=== PATIENT | male | born 1970 | race Caucasian/White ===

== ENCOUNTER 2020-12-28 12:46 | Inpatient (IN) ==
[2020-12-28] MEDS ORDERED: NS 0.9% 1000 ml BAG 1,000 ML IV ONE (13:02)
[2020-12-28 13:24] LABS: ABS Basophils 0.1 10^3/ul (0-0.2); ABS Eosinophils 0.1 10^3/ul (0-0.6); ABS Lymphocytes 1.3 10^3/ul (1.0-4.8); ABS Monocytes 0.4 10^3/ul (0-0.8); Hematocrit 46 % (42-52); Hemoglobin 15.7 g/dL (14.0-18.0); Mean Corpuscular HGB Conc 34 g/dL (31-36); Mean Corpuscular Hemoglobin 32 pg (27-31); Mean Corpuscular Volume 94 fL (80-94); Mean Platelet Volume 7.8 fL (7.4-10.4); Platelet Count 273 10^3/uL (150-450); Red Blood Count 4.88 10^6 /uL (4.18-5.48); Red Cell Distribution Width 14 % (10-15); White Blood Count 5.9 10^3/uL (3.5-10.8)
[2020-12-28 13:42] LABS: INR 1.16 (0.82-1.09)
[2020-12-28 13:43] LABS: Albumin 4.3 g/dL (3.2-5.2); Albumin/Globulin Ratio 1.4 (1-3); Calcium 8.9 mg/dL (8.6-10.3); EGFR African American 92.9 (>60); EGFR Non-African American 76.8 (>60); Globulin 3.1 g/dL (2-4); Potassium 3.8 mmol/L (3.5-5.0); Total Bilirubin 0.7 mg/dL (0.2-1.0); Total Protein 7.4 g/dL (6.4-8.9)
[2020-12-28] MEDS ORDERED: Iohexol 350 (CONTRAST) 500 ML MDV IV ONE ×2 (20:52→21:17)
[2020-12-28] MEDS ORDERED: NS 0.9% 1000 ml BAG 1,000 ML IV SCH (23:30)
[2020-12-29 03:36] LABS: TSH Ultra Thyroid Stim Horm 5.36 mcIU/mL (0.34-5.60)
[2020-12-29] MEDS ORDERED: Senna TAB 8.6 mg TAB PO PRN (04:22)
[2020-12-29] MEDS ORDERED: Iohexol 350 (CONTRAST) 500 ML MDV IV ONE (08:41)
[2020-12-29] MEDS ORDERED: Gadoteridol (CONTRAST) 279.3 MG/ML 10 ML IV ONE (15:12)
[2020-12-30] MEDS ORDERED: Lorazepam PYXIS KEY PRN (12:49)
[2020-12-30] MEDS ORDERED: LORazepam 2 mg VIAL 1 ml IV PUSH ONE (12:50)
[2020-12-30] MEDS ORDERED: Gadoteridol (CONTRAST) 279.3 MG/ML 10 ML IV ONE (15:50)
[2021-01-03] MEDS ORDERED: Piperacillin/Tazobac ADVAN 3.375 GM in NS 0.9% 100 ml BAG 100 ML IV ONE (03:32)
[2021-01-03] MEDS ORDERED: Zosyn per Pharmacy NOTE FOLLOW UP SCH (04:00)
[2021-01-03] MEDS: ZOSYN 3.375 GM Q8H per EXTENDED INFUSION IV SCH ×2 (08:10→16:41)
[2021-01-03 17:22] LABS: Urine Appearance Cloudy; Urine Bilirubin Negative (Negative); Urine Blood Negative (Negative); Urine Color Amber; Urine Glucose Negative (Negative); Urine Ketones Trace (Negative); Urine Nitrite Negative (Negative); Urine Protein 2+(100 mg/dL) (Negative); Urine Specific Gravity 1.026 (1.002-1.030); Urine Urobilinogen Negative (Negative)
[2021-01-03 17:57] LABS: Urine Bacteria Absent (Absent); Urine Red Blood Cell Absent (Absent); Urine White Blood Cell Absent (Absent)
[2021-01-04] MEDS: ZOSYN 3.375 GM Q8H per EXTENDED INFUSION IV SCH ×3 (00:25→18:54)
[2021-01-04 04:24] LABS: ABS Lymphocytes 0.3 10^3/ul (1.0-4.8); ABS Monocytes 0.4 10^3/ul (0-0.8); ABS Neutrophils 8.5 10^3/ul (1.5-7.7); Eosinophil % 0.1 %; Hematocrit 45 % (42-52); Hemoglobin 15.6 g/dL (14.0-18.0); Lymphocyte % 3.1 %; Mean Corpuscular HGB Conc 35 g/dL (31-36); Mean Corpuscular Hemoglobin 33 pg (27-31); Mean Corpuscular Volume 96 fL (80-94); Mean Platelet Volume 7.6 fL (7.4-10.4); Platelet Count 292 10^3/uL (150-450); Red Blood Count 4.68 10^6 /uL (4.18-5.48); Red Cell Distribution Width 15 % (10-15); White Blood Count 9.2 10^3/uL (3.5-10.8)
[2021-01-04 04:40] LABS: Calcium 9.3 mg/dL (8.6-10.3); EGFR Non-African American 84.3 (>60); Magnesium 2.3 mg/dL (1.9-2.7); Potassium 4.9 mmol/L (3.5-5.0)
[2021-01-04] MEDS ORDERED: Levothyroxine 100 MCG/5 ML VIAL IV SCH (06:00)
[2021-01-04] MEDS ORDERED: Perflutren Lipid Microsphere 3 ML VIAL ONE (09:24)
[2021-01-04] MEDS ORDERED: Rocuronium 50 mg VIAL 10 mg/ml 5 ml VIAL (50 mg) ONE (13:43)
[2021-01-04] MEDS ORDERED: Succinylcholine 200 mg VIAL 20 mg/ml 10 ml VIAL (200 mg) ONE (13:43)
[2021-01-04] MEDS ORDERED: Etomidate 40 mg/20 ml (2 MG/ML) 20 ml VIAL (40 mg) ONE (15:03)
[2021-01-04] MEDS ORDERED: Midazolam 10 mg/10 ml VIAL 1 mg/ml 10 ml VIAL (10 mg) ONE (15:03)
[2021-01-04] MEDS ORDERED: Propofol 10 mg/ml 100 ML BTL 100 ML ONE ×2 (15:12→18:16)
[2021-01-04 16:50] LABS: Urine Appearance Cloudy; Urine Bilirubin Negative (Negative); Urine Blood 3+ (Negative); Urine Color Amber; Urine Glucose Negative (Negative); Urine Ketones 1+ (Negative); Urine Nitrite Negative (Negative); Urine Protein 2+(100 mg/dL) (Negative); Urine Specific Gravity 1.024 (1.002-1.030); Urine Urobilinogen Negative (Negative)
[2021-01-04 17:42] LABS: Urine Bacteria Absent (Absent); Urine Red Blood Cell 3+(>10/hpf) (Absent); Urine Squamous Epithelial Cell Present (Absent); Urine White Blood Cell Trace(0-5/hpf) (Absent)
[2021-01-04] MEDS: Chlorhexidine MOUTHWASH 0.12% 15 ML UDC SWISH SPIT SCH ×2 (21:53→22:23)
[2021-01-05] MEDS: ZOSYN 3.375 GM Q8H per EXTENDED INFUSION IV SCH ×3 (00:20→16:30)
[2021-01-05] MEDS: Propofol 10 mg/ml 100 ML BTL 100 ML IV SCH ×5 (00:57→20:48)
[2021-01-05] MEDS: Chlorhexidine MOUTHWASH 0.12% 15 ML UDC SWISH SPIT SCH ×6 (02:36→20:29)
[2021-01-05 04:05] LABS: ABS Lymphocytes 0.8 10^3/ul (1.0-4.8); ABS Monocytes 0.6 10^3/ul (0-0.8); ABS Neutrophils 8.3 10^3/ul (1.5-7.7); Eosinophil % 0.5 %; Hematocrit 40 % (42-52); Hemoglobin 13.8 g/dL (14.0-18.0); Mean Corpuscular HGB Conc 35 g/dL (31-36); Mean Corpuscular Hemoglobin 33 pg (27-31); Mean Corpuscular Volume 95 fL (80-94); Platelet Count 295 10^3/uL (150-450); Red Blood Count 4.17 10^6 /uL (4.18-5.48); Red Cell Distribution Width 15 % (10-15); White Blood Count 9.8 10^3/uL (3.5-10.8)
[2021-01-05 04:25] LABS: Calcium 9.1 mg/dL (8.6-10.3); EGFR African American 109.9 (>60); EGFR Non-African American 90.9 (>60); Magnesium 2.1 mg/dL (1.9-2.7); Potassium 3.9 mmol/L (3.5-5.0)
[2021-01-05] MEDS ORDERED: LORazepam 2 mg VIAL 1 ml IV PUSH PRN (04:45)
[2021-01-05] MEDS ORDERED: Lorazepam PYXIS KEY PRN (04:45)
[2021-01-05] MEDS: Levothyroxine 100 MCG/5 ML VIAL IV SCH (05:56)
[2021-01-05] MEDS: Morphine 2 MG/ML SYRINGE IV PRN ×3 (06:07→18:25)
[2021-01-05] MEDS ORDERED: Potassium Phosphate IV 15 MMOLE in NS 0.9% 250 ml 250 ML IVPB ONE (06:41)
[2021-01-05] MEDS ORDERED: Buffered Lidocaine 1% SYRIN 1 ml INTRADERM ONE (08:59)
[2021-01-05] MEDS: Erythromycin OPTH OINT APPLIC OINT LEFT EYE SCH ×2 (14:52→20:30)
[2021-01-05] MEDS: Saline FLUSH-CENTRAL 10 ML SYRINGE CENT\\PICC SCH ×2 (14:52→20:22)
[2021-01-06] MEDS: ZOSYN 3.375 GM Q8H per EXTENDED INFUSION IV SCH ×3 (00:05→16:10)
[2021-01-06] MEDS: Propofol 10 mg/ml 100 ML BTL 100 ML IV SCH ×4 (01:45→20:28)
[2021-01-06] MEDS: Chlorhexidine MOUTHWASH 0.12% 15 ML UDC SWISH SPIT SCH ×6 (02:58→20:59)
[2021-01-06] MEDS: Levothyroxine 100 MCG/5 ML VIAL IV SCH (05:12)
[2021-01-06 05:34] LABS: ABS Eosinophils 0.2 10^3/ul (0-0.6); ABS Lymphocytes 0.8 10^3/ul (1.0-4.8); ABS Monocytes 0.6 10^3/ul (0-0.8); Eosinophil % 2.1 %; Hematocrit 40 % (42-52); Hemoglobin 13.5 g/dL (14.0-18.0); Mean Corpuscular HGB Conc 34 g/dL (31-36); Mean Corpuscular Hemoglobin 32 pg (27-31); Mean Corpuscular Volume 96 fL (80-94); Mean Platelet Volume 7.6 fL (7.4-10.4); Platelet Count 275 10^3/uL (150-450); Red Blood Count 4.21 10^6 /uL (4.18-5.48); Red Cell Distribution Width 14 % (10-15); White Blood Count 7.5 10^3/uL (3.5-10.8)
[2021-01-06 05:49] LABS: Calcium 8.9 mg/dL (8.6-10.3); EGFR African American 107.1 (>60); EGFR Non-African American 88.6 (>60); Magnesium 2.1 mg/dL (1.9-2.7); Phosphorus 3.4 mg/dL (2.5-5.0)
[2021-01-06] MEDS: Nystatin TOP POWDER 15 GM BTL TOPICAL SCH ×2 (08:56→20:59)
[2021-01-06] MEDS: Erythromycin OPTH OINT APPLIC OINT LEFT EYE SCH ×3 (08:56→20:59)
[2021-01-06] MEDS: Saline FLUSH-CENTRAL 10 ML SYRINGE CENT\\PICC SCH ×2 (08:57→20:59)
[2021-01-06] MEDS ORDERED: Lidocaine 4 MG/ML IV PREMIX 2,000 MG/500 ML BAG IV ONE (09:55)
[2021-01-06] MEDS ORDERED: Sodium Bicarbonate 8.4% VIAL 1 MEQ/ML 50 ml VIAL (50 meq) ONE (09:55)
[2021-01-06] MEDS: Pantoprazole VIAL 40 MG VIAL IV SCH (13:15)
[2021-01-06] MEDS ORDERED: Heparin 5000 UNITS/ML 1 mL VIAL SUBCUT SCH (14:00)
[2021-01-07] MEDS: ZOSYN 3.375 GM Q8H per EXTENDED INFUSION IV SCH ×4 (00:20→23:24)
[2021-01-07] MEDS: Propofol 10 mg/ml 100 ML BTL 100 ML IV SCH ×6 (01:28→22:02)
[2021-01-07] MEDS: Chlorhexidine MOUTHWASH 0.12% 15 ML UDC SWISH SPIT SCH ×7 (02:56→23:25)
[2021-01-07 05:41] LABS: ABS Eosinophils 0.3 10^3/ul (0-0.6); ABS Lymphocytes 0.8 10^3/ul (1.0-4.8); ABS Monocytes 0.5 10^3/ul (0-0.8); ABS Neutrophils 4.6 10^3/ul (1.5-7.7); Eosinophil % 4.1 %; Hematocrit 39 % (42-52); Hemoglobin 13.3 g/dL (14.0-18.0); Lymphocyte % 13.3 %; Mean Corpuscular HGB Conc 34 g/dL (31-36); Mean Corpuscular Hemoglobin 32 pg (27-31); Mean Corpuscular Volume 94 fL (80-94); Mean Platelet Volume 7.5 fL (7.4-10.4); Nucleated Red Blood Cells % 0.1; Platelet Count 269 10^3/uL (150-450); Red Blood Count 4.13 10^6 /uL (4.18-5.48); Red Cell Distribution Width 14 % (10-15); White Blood Count 6.2 10^3/uL (3.5-10.8)
[2021-01-07 05:59] LABS: Calcium 8.8 mg/dL (8.6-10.3); EGFR African American 129.9 (>60); EGFR Non-African American 107.4 (>60); Magnesium 2.1 mg/dL (1.9-2.7); Phosphorus 2.9 mg/dL (2.5-5.0)
[2021-01-07] MEDS: Pantoprazole VIAL 40 MG VIAL IV SCH (08:55)
[2021-01-07] MEDS: Erythromycin OPTH OINT APPLIC OINT LEFT EYE SCH ×3 (08:55→21:19)
[2021-01-07] MEDS: Saline FLUSH-CENTRAL 10 ML SYRINGE CENT\\PICC SCH ×2 (08:56→21:20)
[2021-01-07] MEDS: Nystatin TOP POWDER 15 GM BTL TOPICAL SCH ×2 (11:06→21:19)
[2021-01-07] MEDS ORDERED: Lidocaine 1% VIAL 10 MG/ML VIAL ONE (15:20)
[2021-01-08] MEDS: Propofol 10 mg/ml 100 ML BTL 100 ML IV SCH ×6 (01:22→20:38)
[2021-01-08] MEDS: Chlorhexidine MOUTHWASH 0.12% 15 ML UDC SWISH SPIT SCH ×6 (04:34→23:59)
[2021-01-08 06:16] LABS: ABS Eosinophils 0.3 10^3/ul (0-0.6); ABS Lymphocytes 0.7 10^3/ul (1.0-4.8); ABS Monocytes 0.5 10^3/ul (0-0.8); ABS Neutrophils 3.7 10^3/ul (1.5-7.7); Eosinophil % 5.2 %; Hematocrit 40 % (42-52); Hemoglobin 13.6 g/dL (14.0-18.0); Lymphocyte % 12.7 %; Mean Corpuscular HGB Conc 34 g/dL (31-36); Mean Corpuscular Hemoglobin 32 pg (27-31); Mean Corpuscular Volume 94 fL (80-94); Mean Platelet Volume 7.8 fL (7.4-10.4); Platelet Count 257 10^3/uL (150-450); Red Blood Count 4.21 10^6 /uL (4.18-5.48); Red Cell Distribution Width 14 % (10-15); White Blood Count 5.2 10^3/uL (3.5-10.8)
[2021-01-08 06:32] LABS: Calcium 8.7 mg/dL (8.6-10.3); EGFR African American 129.9 (>60); EGFR Non-African American 107.4 (>60); Magnesium 2.1 mg/dL (1.9-2.7); Phosphorus 2.9 mg/dL (2.5-5.0); Potassium 4.3 mmol/L (3.5-5.0)
[2021-01-08] MEDS: ZOSYN 3.375 GM Q8H per EXTENDED INFUSION IV SCH ×3 (08:28→23:59)
[2021-01-08] MEDS: Nystatin TOP POWDER 15 GM BTL TOPICAL SCH ×2 (08:29→20:14)
[2021-01-08] MEDS: Saline FLUSH-CENTRAL 10 ML SYRINGE CENT\\PICC SCH ×2 (08:29→20:15)
[2021-01-08] MEDS: Erythromycin OPTH OINT APPLIC OINT LEFT EYE SCH ×3 (08:29→20:15)
[2021-01-08] MEDS: Pantoprazole VIAL 40 MG VIAL IV SCH (08:29)
[2021-01-08 09:24] LABS: Myoglobin 43.2 ng/mL (17.4-105.7)
[2021-01-08] MEDS: Polyethylene Glycol 3350 17 GM PACKET PO SCH (11:58)
[2021-01-08] MEDS: Heparin 5000 UNITS/ML 1 mL VIAL SUBCUT SCH ×2 (14:37→22:17)
[2021-01-08] MEDS: Senna TAB 8.6 mg TAB PO SCH (20:14)
[2021-01-09] MEDS: Propofol 10 mg/ml 100 ML BTL 100 ML IV SCH ×6 (00:04→19:47)
[2021-01-09] MEDS: Chlorhexidine MOUTHWASH 0.12% 15 ML UDC SWISH SPIT SCH ×5 (04:15→19:46)
[2021-01-09] MEDS: Heparin 5000 UNITS/ML 1 mL VIAL SUBCUT SCH ×3 (05:57→22:11)
[2021-01-09 06:42] LABS: ABS Basophils 0.1 10^3/ul (0-0.2); ABS Eosinophils 0.3 10^3/ul (0-0.6); ABS Lymphocytes 0.7 10^3/ul (1.0-4.8); ABS Monocytes 0.5 10^3/ul (0-0.8); ABS Neutrophils 3.9 10^3/ul (1.5-7.7); Eosinophil % 5.8 %; Hematocrit 41 % (42-52); Hemoglobin 13.5 g/dL (14.0-18.0); Lymphocyte % 12.4 %; Mean Corpuscular HGB Conc 33 g/dL (31-36); Mean Corpuscular Hemoglobin 31 pg (27-31); Mean Corpuscular Volume 95 fL (80-94); Mean Platelet Volume 8.1 fL (7.4-10.4); Nucleated Red Blood Cells % 0.1; Platelet Count 264 10^3/uL (150-450); Red Blood Count 4.31 10^6 /uL (4.18-5.48); Red Cell Distribution Width 15 % (10-15); White Blood Count 5.4 10^3/uL (3.5-10.8)
[2021-01-09 06:49] LABS: Calcium 8.3 mg/dL (8.6-10.3); Potassium 4.3 mmol/L (3.5-5.0)
[2021-01-09 06:55] LABS: EGFR African American 163.8 (>60); EGFR Non-African American 135.4 (>60)
[2021-01-09] MEDS: Pantoprazole VIAL 40 MG VIAL IV SCH (08:35)
[2021-01-09] MEDS: Polyethylene Glycol 3350 17 GM PACKET PO SCH (08:35)
[2021-01-09] MEDS: Nystatin TOP POWDER 15 GM BTL TOPICAL SCH ×2 (08:35→19:46)
[2021-01-09] MEDS: ZOSYN 3.375 GM Q8H per EXTENDED INFUSION IV SCH ×3 (08:35→23:45)
[2021-01-09] MEDS: Erythromycin OPTH OINT APPLIC OINT LEFT EYE SCH ×3 (08:36→19:46)
[2021-01-09] MEDS: Saline FLUSH-CENTRAL 10 ML SYRINGE CENT\\PICC SCH ×2 (08:36→19:47)
[2021-01-09 09:43] LABS: Phosphorus 2.9 mg/dL (2.5-5.0)
[2021-01-09] MEDS: Magnesium Hydroxide LIQ 30 ML UDC PO PRN (13:25)
[2021-01-09] MEDS: Senna TAB 8.6 mg TAB PO SCH (19:46)
[2021-01-10] MEDS: Chlorhexidine MOUTHWASH 0.12% 15 ML UDC SWISH SPIT SCH ×6 (01:45→21:53)
[2021-01-10] MEDS: Propofol 10 mg/ml 100 ML BTL 100 ML IV SCH ×2 (03:44→07:21)
[2021-01-10] MEDS: Magnesium Hydroxide LIQ 30 ML UDC PO PRN (04:20)
[2021-01-10] MEDS: Heparin 5000 UNITS/ML 1 mL VIAL SUBCUT SCH ×3 (05:13→21:52)
[2021-01-10 07:48] LABS: Hematocrit 40 % (42-52); Hemoglobin 13.5 g/dL (14.0-18.0); Mean Corpuscular HGB Conc 34 g/dL (31-36); Mean Corpuscular Hemoglobin 32 pg (27-31); Mean Corpuscular Volume 94 fL (80-94); Mean Platelet Volume 8.2 fL (7.4-10.4); Platelet Count 261 10^3/uL (150-450); Red Cell Distribution Width 14 % (10-15); White Blood Count 5.6 10^3/uL (3.5-10.8)
[2021-01-10 07:58] LABS: Calcium 8.7 mg/dL (8.6-10.3); EGFR Non-African American 119.9 (>60); Magnesium 2.1 mg/dL (1.9-2.7); Phosphorus 3.2 mg/dL (2.5-5.0); Potassium 4.1 mmol/L (3.5-5.0)
[2021-01-10] MEDS: ZOSYN 3.375 GM Q8H per EXTENDED INFUSION IV SCH ×2 (08:30→16:21)
[2021-01-10] MEDS: Magnesium Hydroxide LIQ 30 ML UDC PO SCH ×2 (08:33→14:19)
[2021-01-10] MEDS: Pantoprazole VIAL 40 MG VIAL IV SCH (08:33)
[2021-01-10] MEDS: Polyethylene Glycol 3350 17 GM PACKET PO SCH (08:33)
[2021-01-10] MEDS: Nystatin TOP POWDER 15 GM BTL TOPICAL SCH ×2 (08:34→21:53)
[2021-01-10] MEDS: Erythromycin OPTH OINT APPLIC OINT LEFT EYE SCH ×2 (08:34→14:18)
[2021-01-10] MEDS ORDERED: Senna TAB 8.6 mg TAB PO SCH (09:00)
[2021-01-10] MEDS ORDERED: Docusate LIQ 100 MG/10 ML UDC PO SCH (09:00)
[2021-01-10] MEDS: Saline FLUSH-CENTRAL 10 ML SYRINGE CENT\\PICC SCH ×2 (09:10→21:53)
[2021-01-10] MEDS: Midazolam 50 MG VIAL IV DRIP 50 ML IV SCH ×2 (11:32→21:40)
[2021-01-11] MEDS: Chlorhexidine MOUTHWASH 0.12% 15 ML UDC SWISH SPIT SCH ×6 (00:09→21:42)
[2021-01-11] MEDS: Erythromycin OPTH OINT APPLIC OINT LEFT EYE SCH ×4 (00:09→21:42)
[2021-01-11 05:57] LABS: ABS Basophils 0.1 10^3/ul (0-0.2); ABS Eosinophils 0.3 10^3/ul (0-0.6); ABS Lymphocytes 0.6 10^3/ul (1.0-4.8); ABS Monocytes 0.5 10^3/ul (0-0.8); ABS Neutrophils 5.9 10^3/ul (1.5-7.7); Eosinophil % 3.6 %; Hematocrit 41 % (42-52); Hemoglobin 13.8 g/dL (14.0-18.0); Lymphocyte % 8.7 %; Mean Corpuscular HGB Conc 33 g/dL (31-36); Mean Corpuscular Hemoglobin 32 pg (27-31); Mean Corpuscular Volume 95 fL (80-94); Mean Platelet Volume 8.1 fL (7.4-10.4); Platelet Count 272 10^3/uL (150-450); Red Blood Count 4.34 10^6 /uL (4.18-5.48); Red Cell Distribution Width 14 % (10-15); White Blood Count 7.4 10^3/uL (3.5-10.8)
[2021-01-11] MEDS: Heparin 5000 UNITS/ML 1 mL VIAL SUBCUT SCH ×3 (06:12→21:43)
[2021-01-11] MEDS: Nystatin TOP POWDER 15 GM BTL TOPICAL SCH ×2 (10:56→21:42)
[2021-01-11] MEDS: Pantoprazole VIAL 40 MG VIAL IV SCH (10:56)
[2021-01-11] MEDS: Polyethylene Glycol 3350 17 GM PACKET PO SCH (10:58)
[2021-01-11] MEDS: Saline FLUSH-CENTRAL 10 ML SYRINGE CENT\\PICC SCH ×2 (10:58→21:43)
[2021-01-11] MEDS ORDERED: Ondansetron 4 mg VIAL 2 MG/ML 2 ml VIAL ONE (11:10)
[2021-01-11] MEDS: Ondansetron 4 mg VIAL 2 MG/ML 2 ml VIAL IV PRN ×2 (11:13→17:12)
[2021-01-11] MEDS ORDERED: Metoclopramide 5 MG/ML VIAL (10 mg) IV SLOW PU ONE (14:20)
[2021-01-11 14:56] LABS: Calcium 8.8 mg/dL (8.6-10.3); Potassium 4.4 mmol/L (3.5-5.0)
[2021-01-11] MEDS: Midazolam 50 MG VIAL IV DRIP 50 ML IV SCH (15:00)
[2021-01-11 15:02] LABS: EGFR African American 155.2 (>60); EGFR Non-African American 128.3 (>60)
[2021-01-12] MEDS: Chlorhexidine MOUTHWASH 0.12% 15 ML UDC SWISH SPIT SCH (00:59)
[2021-01-12] MEDS: Midazolam 50 MG VIAL IV DRIP 50 ML IV SCH (01:09)
[2021-01-12 05:47] LABS: ABS Basophils 0.1 10^3/ul (0-0.2); ABS Eosinophils 0.2 10^3/ul (0-0.6); ABS Lymphocytes 2.6 10^3/ul (1.0-4.8); ABS Monocytes 0.8 10^3/ul (0-0.8); ABS Neutrophils 6.6 10^3/ul (1.5-7.7); Eosinophil % 2.4 %; Hematocrit 44 % (42-52); Hemoglobin 14.6 g/dL (14.0-18.0); Lymphocyte % 25.5 %; Mean Corpuscular HGB Conc 33 g/dL (31-36); Mean Corpuscular Hemoglobin 32 pg (27-31); Mean Corpuscular Volume 96 fL (80-94); Mean Platelet Volume 8.5 fL (7.4-10.4); Platelet Count 306 10^3/uL (150-450); Red Blood Count 4.58 10^6 /uL (4.18-5.48); Red Cell Distribution Width 15 % (10-15); White Blood Count 10.3 10^3/uL (3.5-10.8)
[2021-01-12] MEDS ORDERED: Norepinephrine 16MCG/ML IVPRE 4,000 MCG/250 ML BAG IV ONE (05:54)
[2021-01-12 06:13] LABS: CO2 Carbon Dioxide 37 mmol/L (22-32); Calcium 9.2 mg/dL (8.6-10.3); Chloride 102 mmol/L (101-111); Sodium 144 mmol/L (135-145)
[2021-01-12] MEDS ORDERED: Phenylephrine IV 10 MG/ML 1 ml VIAL ONE (06:17)
[2021-01-12 06:18] LABS: Blood Urea Nitrogen 21 mg/dL (6-24); EGFR African American 103.2 (>60); EGFR Non-African American 85.3 (>60); Glucose 154 mg/dL (70-100)
[2021-01-12 06:23] LABS: Anion Gap 5 mmol/L (2-11)
[2021-01-12] MEDS ORDERED: EPINEPHrine SYR 0.1MG/ML 10 ml SYRINGE ONE (06:38)
[2021-01-12] MEDS ORDERED: Sodium Bicarbonate 8.4% SYR 50 ml SYRINGE ONE (06:38)
[2021-01-12] MEDS ORDERED: EPINEPHRINE 1 MG/ML 1 MG in D5W 250 ML BAG 249 ML IV SCH (07:00)
[2021-01-12 07:51] VITALS: BP 99/81
== END 2021-01-12 12:12 | disposition expired | DRG 80 ==
LOC: ED 12:46 → MEDTELE 23:19 → ICU 01-04 02:51
PROVIDERS: ADMIT Hospitalist; ATTEND Surgery Surgical Critical Care